=== PATIENT | female | born 1950 | race Caucasian/White ===

== ENCOUNTER → 2017-01-28 16:44 | Outpatient (CLI) | payer MEDICARE ==
[2015-03-14 12:21] VITALS: BMI 24.0
[~2017-01-28 16:44] MED LIST: GLUCOPHAGE500 MG PO; HYDROCODONE-APA1 TAB PO; OXYBUTYNIN CHLOR5 MG PO; PRILOSEC20 MG PO; SYNTHROID50 MCG PO
== END | disposition home or self-care (01) ==
LOC: D.MAMMO 11:00
DX: Z12.31 Encounter for screening mammogram for malignant neoplasm of breast (principal)

== ENCOUNTER 2018-06-28 20:15 | Emergency (ER) | payer MEDICARE ==
[~2018-06-28] VITALS: Ht 162.6 cm; Wt 68.2 kg
[2018-06-28 20:30] VITALS: Ht 162.6 cm; Wt 68.2 kg
[2018-06-28 21:25] LABS: BASOPHILS 0.2 % (0-2); EOSINOPHILS 3.3 % (0-7); HEMATOCRIT 40.4 % (36.0-48.0); IMMATURE GRANULOCYTES 0.2 % (0-5); LYMPHOCYTES 35.2 % (15-50); MCH 31.5 pg (26.0-34.0); MCHC 34.7 g/dL (31.0-37.0); MEAN PLATELET VOLUME 9.5 fL (7.4-10.4); MONOCYTES 14.5 % (2-11); NEUTROPHILS 46.6 % (40-80); PLATELET COUNT 205 10x3/uL (130-400); RBC 4.44 10x6/uL (4.00-5.40); RDW 12.9 % (11.5-14.5); WBC 4.3 10x3/uL (4.8-10.8)
[2018-06-28 22:06] LABS: ALBUMIN 3.8 g/dL (3.4-5.0); ALKALINE PHOSPHATASE 80 U/L (46-116); ALT (SGPT) 29 U/L (10-68); BILIRUBIN - TOTAL 0.71 mg/dL (0.2-1.3); CALC OSMOLALITY 280 mosm/kg (275-300); CALCIUM 8.6 mg/dL (8.5-10.1); CARBON DIOXIDE 24.8 mmol/L (21.0-32.0); CHLORIDE - SERUM 106 mmol/L (98-107); CREATININE - SERUM 0.8 mg/dL (0.6-1.3); GLUCOSE 93 mg/dL (74-106); PROTEIN - SERUM 7.4 g/dL (6.4-8.2); SODIUM 141 mmol/L (136-145); UREA NITROGEN 12 mg/dL (7-18); eGFR NON AFRICAN AMERICAN 75 mL/min (90-120)
[2018-06-28 22:07] LABS: LIPASE 108 U/L (73-393); PRO BNP 96 pg/mL (0-125)
[2018-06-28 22:10] LABS: TROPONIN-I < 0.017 ng/mL (0.000-0.060)
[2018-06-29] MEDS ORDERED: LEVAQUIN750 MG PO (01:03)
[2018-06-29 01:20] VITALS: BP 134/71
== END 2018-06-29 02:46 | disposition home or self-care (01) ==
LOC: D.ER 20:15
PROVIDERS: Family Medicine
DX: J18.9 Pneumonia, unspecified organism (principal); R50.9 Fever, unspecified; E11.9 Type 2 diabetes mellitus without complications; E07.9 Disorder of thyroid, unspecified; M35.00 Sjogren syndrome, unspecified

== ENCOUNTER → 2018-09-07 16:55 | Outpatient (CLI) | payer MEDICARE ==
[2018-06-28 20:30] VITALS: BMI 25.8
[~2018-09-07 16:55] MED LIST changes: +LEVAQUIN750 MG PO
== END | disposition home or self-care (01) ==
LOC: D.MAMMO 15:15
DX: Z12.31 Encounter for screening mammogram for malignant neoplasm of breast (principal)

== ENCOUNTER → 2018-11-26 08:56 | Outpatient (CLI) | payer MEDICARE ==
[2018-06-28 20:30] VITALS: BMI 25.8
== END | disposition home or self-care (01) ==
LOC: D.CT 08:56
DX: N28.1 Cyst of kidney, acquired (principal)

== ENCOUNTER 2019-09-19 16:10 | Emergency (ER) | payer MEDICARE, MEDICAID ==
[~2019-09-19] VITALS: Ht 162.6 cm; Wt 68.2 kg
[2019-09-19 16:16] VITALS: Ht 162.6 cm; Wt 68.2 kg
[2019-09-19] MEDS ORDERED: CRESTOR10 MG PO (16:19)
[2019-09-19] MEDS ORDERED: COZAAR25 MG PO (16:19)
[2019-09-19 16:46] LABS: APPEARANCE CLEAR (CLEAR); BILIRUBIN NEGATIVE (NEGATIVE); COLOR YELLOW (YELLOW); GLUCOSE NEGATIVE (NEGATIVE); KETONE NEGATIVE (NEGATIVE); NITRITE NEGATIVE (NEGATIVE); PROTEIN NEGATIVE (NEGATIVE); SPECIFIC GRAVITY 1.025 (1.005-1.020); UROBILINOGEN NORMAL (NORMAL)
[2019-09-19 16:48] LABS: BASOPHILS 0.1 % (0-2); EOSINOPHILS 0.6 % (0-7); HEMATOCRIT 41.5 % (36.0-48.0); HEMOGLOBIN 14.1 g/dL (12-16); IMMATURE GRANULOCYTES 0.2 % (0-5); LYMPHOCYTES 12.5 % (15-50); MCH 31.4 pg (26.0-34.0); MCV 92.4 fL (80.0-100.0); MEAN PLATELET VOLUME 9.4 fL (7.4-10.4); MONOCYTES 5.1 % (2-11); NEUTROPHILS 81.5 % (40-80); RBC 4.49 10x6/uL (4.00-5.40); RDW 12.3 % (11.5-14.5); WBC 10.2 10x3/uL (4.8-10.8)
[2019-09-19 16:49] LABS: PLATELET COUNT 279 10x3/uL (130-400)
[2019-09-19 16:53] LABS: ANION GAP 14.7 mmol/L (8-16); CALCIUM 8.5 mg/dL (8.5-10.1); CARBON DIOXIDE 22.3 mmol/L (21.0-32.0); CREATININE - SERUM 0.9 mg/dL (0.6-1.3)
[2019-09-19 16:58] LABS: ALBUMIN 3.8 g/dL (3.4-5.0); BILIRUBIN - TOTAL 0.72 mg/dL (0.2-1.3); PROTEIN - SERUM 7.5 g/dL (6.4-8.2)
[2019-09-19 21:06] VITALS: BP 115/61
== END 2019-09-19 21:06 | disposition home or self-care (01) ==
LOC: D.ER 16:10
PROVIDERS: Emergency Medicine
DX: R50.9 Fever, unspecified (principal); R10.9 Unspecified abdominal pain; E11.9 Type 2 diabetes mellitus without complications; Z79.84 Long term (current) use of oral hypoglycemic drugs

== ENCOUNTER 2019-09-23 09:00 | Outpatient (CLI) | payer MEDICARE ==
[2019-09-19 16:16] VITALS: BMI 25.8
[~2019-09-23 09:00] MED LIST changes: +COZAAR25 MG PO; +CRESTOR10 MG PO
== END 2019-09-23 10:00 | disposition home or self-care (01) ==
LOC: D.MAMMO 09:00
PROVIDERS: ATTEND Nurse Practitioner Family
DX: Z12.31 Encounter for screening mammogram for malignant neoplasm of breast (principal)